=== PATIENT | male | born 1945 | race Caucasian/White ===

== ENCOUNTER 2017-02-09 12:05 | Emergency (ER) | payer BC, OTHER ==
[2017-02-09 12:10] VITALS: O2SAT 98
[2017-02-09 12:55] VITALS: BP 124/76; PULSE 78; RESP 17; TEMP 98.1
[2017-02-09 13:00] LABS: BASO % 0.2 % (0.0-2.0); EOS # 0.1 K/uL (0.0-0.7); EOS % 0.6 % (0.0-4.0); HEMOGLOBIN 14.9 g/dL (12.0-18.0); LYMPH # 0.8 K/uL (1.0-4.3); LYMPH % 4.7 % (20.0-40.0); MEAN CELL VOLUME 89.9 fl (80.0-94.0); MEAN CORPUSCULAR HEMOGLOBIN 29.7 pg (27.0-31.0); MEAN PLATELET VOLUME 7.2 fl (7.2-11.7); MONO # 0.6 K/uL (0.0-0.8); NEUT # 14.6 K/uL (1.8-7.0); NEUT % 90.5 % (50.0-75.0); PLATELET COUNT 218 K/uL (130-400); RBC 5.01 Mil/uL (4.40-5.90); RED CELL DISTRIBUTION WIDTH 13.9 % (11.5-14.5); WHITE BLOOD COUNT 16.1 K/uL (4.8-10.8)
[2017-02-09 13:05] LABS: ALB/GLOB RATIO 1.4 (1.0-2.1); ALBUMIN 4.5 g/dL (3.5-5.0); ALT/SGPT 37 U/L (21-72); AST/SGOT 28 U/L (17-59); BLOOD UREA NITROGEN 22 mg/dl (9-20); CALCIUM 9.7 mg/dL (8.4-10.2); GFR AFRICAN-AMERICAN 52; GFR NON-AFRICAN AMERICAN 43
[2017-02-09] MEDS ORDERED: Sodium Chloride 0.9% 1,000 ML IV STA (13:49)
[2017-02-09 14:38] LABS: ANISOCYTOSIS SLIGHT; EOSINOPHIL 1 % (0-7); HYPOCHROMIC SLIGHT; LYMPHOCYTE 4 % (20-50); MONOCYTE 3 % (0-10); NEUTROPHIL 92 % (42-75); PLATELET ESTIMATE NORMAL (NORMAL); TEARDROP CELLS SLIGHT; TOTAL CELLS COUNTED 100
--- NOTE | 2017-02-09 14:40 | ED PDOC ---
HPI: Head Injury Time Seen by Provider: 02/09/17 12:13 Chief Complaint (Nursing): Headache Chief Complaint (Provider): Left arm injury History Per: Patient History/Exam Limitations: no limitations Additional Complaint(s): Patient is a 72 year old male with a past medical history of hypertension and diabetes presenting to the emergency department for a left elbow injury and mild dizziness status post traumatic fall. Reports that he was playing basketball when he collided with another player, fell, and hit his head and injured his left elbow. He felt dazed afterwards and walked to the bench where he lost consciousness and experienced convulsions for a short period before returning to baseline condition. Denies weakness, numbness, changes in speech and vision, surgical history, or a history of smoking. PCP: none provided. Past Medical History Reviewed: Historical Data, Nursing Documentation, Vital Signs Vital Signs: Last Vital Signs Temp 98.1 F 02/09/17 12:54 Pulse 78 02/09/17 12:54 Resp 17 02/09/17 12:54 BP 124/76 02/09/17 12:54 Pulse Ox 98 02/09/17 12:54 - Medical History PMH: Diabetes, HTN, Hypercholesterolemia - Surgical History Surgical History: No Surg Hx - Family History Family History: States: Unknown Family Hx - Social History Current smoker - smoking cessation education provided: No Ex-Smoker (has not smoked in the last 12 months): No Alcohol: Social Drugs: Denies - Home Medications Home Medications: Ambulatory Orders Medication Instructions Recorded levETIRAcetam [Keppra] 500 mg PO BID #20 tab 02/09/17 traMADol [Ultram] 50 mg PO TID PRN #12 tab 02/09/17 - Allergies Allergies/Adverse Reactions: Allergies Allergy/AdvReac Type Severity Reaction Status Date / Time No Known Allergies Allergy Verified 02/09/17 12:07 Review of Systems ROS Statement: Except As Marked, All Systems Reviewed And Found Negative Eyes: Negative for: Vision Change Musculoskeletal: Positive for: Arm Pain (left elbow pain), Hand Pain (mild left hand pain) Neurological: Positive for: Seizures (possible), Headache, Dizziness (mild). Negative for: Weakness, Numbness, Change in Speech Physical Exam - Reviewed Nursing Documentation Reviewed: Yes Vital Signs Reviewed: Yes - Physical Exam Appears: Positive for: Well, Non-toxic, No Acute Distress Head Exam: Positive for: ATRAUMATIC, NORMAL INSPECTION, NORMOCEPHALIC Skin: Positive for: Normal Color, Warm, Dry Eye Exam: Positive for: EOMI, Normal appearance, PERRL ENT: Positive for: Normal ENT Inspection Neck: Positive for: Normal, Painless ROM, Supple Cardiovascular/Chest: Positive for: Regular Rate, Rhythm. Negative for: Murmur Respiratory: Positive for: Normal Breath Sounds. Negative for: Accessory Muscle Use, Respiratory Distress Gastrointestinal/Abdominal: Positive for: Normal Exam, Soft Back: Positive for: Normal Inspection Extremity: Positive for: Tenderness (proximal left hand tenderness with small area of ecchymosis on left palm) Neurologic/Psych: Positive for: Alert, Oriented, Other (speech clear) - Laboratory Results Result Diagrams: 02/09/17 12:20 02/09/17 12:20 - ECG O2 Sat by Pulse Oximetry: 98 (RA) Pulse Ox Interpretation: Normal Medical Decision Making Medical Decision Making: Time: 12:25 Initial Impression: Left elbow pain Initial Plan: -EKG -X-Ray Left elbow -MRI Head -Normal Saline, 1 L/hr -X-Ray Left forearm -X-Ray Left hand -X-Ray Left wrist -Reevaluation 12:39 MRI BRAIN FINDINGS: HEMORRHAGE: None DWI: No evidence of an acute or early subacute infarction. BRAIN PARENCHYMA: No mass effect or edema. Mild diffuse cerebral atrophy chronic microangiopathy are identified. No mass effect or suspicious midline findings. No suspicious extra-axial fluid collection. VENTRICLES: Unremarkable. No hydrocephalus. CRANIUM: No displaced fracture identified. Scalp soft tissues appear diffusely unremarkable as well. ORBITS: Grossly unremarkable. PARANASAL SINUSES/MASTOIDS: Clear VASCULAR SYSTEM: Skull base flow voids intact. OTHER FINDINGS: None. IMPRESSION: No definite acute intracranial findings or displaced fracture identified grossly. Mild age related neuro degenerative changes are identified. D/w Dr Nieto neurology, recommends starting keppra 500mg BID and followup oupt EEG w Dr rodriguez ([place]). Long arm splint L arm applied confirmed neurovasc intact by chief writer. Use sling. Followup w orthopedist (family has private orthopedist they will call). In ED ~4hrs, no signs recurrent seizure, feels well, no headache. Staying w family tonight, daughter ED nurse, aware of head injury instructions. Scribe Attestation: Documented by Virgie Sandoval, acting as a scribe for Paco Mayo MD. Provider Scribe Attestation: All medical record entries made by the Scribe were at my direction and personally dictated by me. I have reviewed the chart and agree that the record accurately reflects my personal performance of the history, physical exam, medical decision making, and the department course for this patient. I have also personally directed, reviewed, and agree with the discharge instructions and disposition. Disposition - Clinical Impression Clinical Impression: Seizure, Concussion, Elbow fracture - Patient ED Disposition Is Patient to be Admitted: No Counseled Patient/Family Regarding: Studies Performed, Diagnosis, Need For Followup, Rx Given - Disposition Referrals: Elio Kang III, MD [Staff Provider] - Pete Rodriguez MD [Staff Provider] - Disposition: Routine/Home Disposition Time: 16:18 Condition: STABLE Additional Instructions: Return to ER for any worse or new symptoms. Do not drive until cleared by neurology. Take keppra 500mg 2x daily. Avoid further head injury, no athletics for now. See orthopedist for evaluation of elbow injury. Prescriptions: levETIRAcetam [Keppra] 500 mg PO BID #20 tab traMADol [Ultram] 50 mg PO TID PRN #12 tab PRN Reason: Pain, Moderate (4-7) Instructions: Elbow Fracture in Adults (ED), Concussion (ED), Head Injury (ED) , New-Onset Seizure in Adults (ED) Forms: [employer] ([place])
--- NOTE | 2017-02-09 14:56 | MRI ---
PROCEDURE: MRI BRAIN WITHOUT CONTRAST HISTORY: head trauma, seizure COMPARISON: None. TECHNIQUE: Multiplanar, multisequence MR images of the brain were obtained without intravenous contrast enhancement. FINDINGS: HEMORRHAGE: None DWI: No evidence of an acute or early subacute infarction. BRAIN PARENCHYMA: No mass effect or edema. Mild diffuse cerebral atrophy chronic microangiopathy are identified. No mass effect or suspicious midline findings. No suspicious extra-axial fluid collection. VENTRICLES: Unremarkable. No hydrocephalus. CRANIUM: No displaced fracture identified. Scalp soft tissues appear diffusely unremarkable as well. ORBITS: Grossly unremarkable. PARANASAL SINUSES/MASTOIDS: Clear VASCULAR SYSTEM: Skull base flow voids intact. OTHER FINDINGS: None. IMPRESSION: No definite acute intracranial findings or displaced fracture identified grossly. Mild age related neuro degenerative changes are identified.
--- NOTE | 2017-02-09 15:20 | RAD ---
PROCEDURE: Left Hand Radiographs. HISTORY: FALL TRAUMA COMPARISON: None. FINDINGS: BONES: No acute fracture is identified. Advanced osteoarthritis appears the proximal 5 joint of the ring finger with local soft tissue edema related. There is a valgus deformity of the joint as well, also on degenerative basis. Chronic fracture chronic healed fracture is not excluded here at the distal proximal phalanx. JOINTS: Degenerate changes seen at the ring finger as well as at the proximal interphalangeal joint of the small finger. Lesser similar changes affect the remaining into the interphalangeal joints throughout the left hand. Diffuse osteopenia suggests osteoporosis. . SOFT TISSUES: Soft tissue edema is appreciated related at the proximal interphalangeal joint of the left ring finger. OTHER FINDINGS: None. IMPRESSION: No acute fracture or dislocation a chronic fracture of the proximal phalanx left ring finger is suspected. 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
--- NOTE | 2017-02-09 15:22 | RAD ---
PROCEDURE: Left Wrist Radiographs. HISTORY: FALL TRAUMA COMPARISON: None. FINDINGS: BONES: There is no fracture or suspicious lytic or blastic change throughout the carpal bones was visualized distal radius and ulna. Vascular calcifications seen in the volar wrist soft tissues as well as the distal dorsal left forearm. JOINTS: Limited narrowing of the radiocarpal joints is identified. The navicular bone appears intact nevertheless. SOFT TISSUES: Vascular calcifications as discussed above. OTHER FINDINGS: None. IMPRESSION: No acute fracture or dislocation/subluxation left wrist. Degenerate changes seen at the radiocarpal joints. Vascular calcifications seen in the dorsal wrist soft tissues.
--- NOTE | 2017-02-09 15:27 | RAD ---
PROCEDURE: Radiographs of the Left Forearm HISTORY: FALL TRAUMA COMPARISON: None available. TECHNIQUE: Frontal and lateral views obtained. FINDINGS: BONES: Fracture of the volar margins of the coronoid process is appreciated of the proximal ulna, mildly comminuted. Fracture plane may be corticated and therefore reflect chronic nondisplaced fracture. Further clinical correlation is advised. A prominent joint effusion is not apparent grossly. No dislocation or subluxation. JOINT SPACES: Unremarkable. OTHER FINDINGS: Vascular calcifications are identified at the medial forearm soft tissues. IMPRESSION: A limited, comminuted fracture of the coronoid process of the ulna is suggested however this may be chronic. Clinically correlate for potential acute timeframe. Acute fracture component is not excluded. Follow-up CT or MRI may be helpful. No subluxation or dislocation.
--- NOTE | 2017-02-09 15:31 | RAD ---
PROCEDURE: Radiographs of the left elbow. HISTORY: FALL TRAUMA COMPARISON: No prior. FINDINGS: BONES: There is a question of a chronic fracture the choroid process of the proximal left ulna. No suspicious lytic or blastic change. JOINTS: Normal. No osteoarthritis. SOFT TISSUES: Normal. JOINT EFFUSION: None. OTHER FINDINGS: None IMPRESSION: Acute versus chronic fracture of the coronoid process of the proximal left ulna. No dislocation or definitive effusion. Incomplete fusion of the medial epicondyle of the distal left humerus is incidentally noted.
--- NOTE | 2017-02-10 07:32 | CARD ---
APPROVED REPORT EKG Measurement Heart [id number] <Conclusion> Normal sinus rhythm Inferior-posterior infarct, age undetermined Abnormal ECG
== END 2017-02-09 17:00 | disposition home or self-care (01) ==
LOC: H.ER 12:05
DX: S06.0X0A Concussion without loss of consciousness, initial encounter (principal); S52.502A Unspecified fracture of the lower end of left radius, initial encounter for closed fracture; W22.8XXA Striking against or struck by other objects, initial encounter; Y93.67 Activity, basketball; R56.9 Unspecified convulsions; E78.00 Pure hypercholesterolemia, unspecified; E11.9 Type 2 diabetes mellitus without complications; I10 Essential (primary) hypertension; I73.9 Peripheral vascular disease, unspecified
CPT/HCPCS: 70551; 73070; 73090; 73110; 73130; 80053; 82550; 82948; 84484; 85025; 93005; 96360; 99282; J1885; J7040